=== PATIENT | male | born 1975 | race Caucasian/White ===

== ENCOUNTER 2020-04-03 09:35 | Outpatient (REF) | payer OTHER, SELFPAY ==
[2020-04-03 11:27] LABS: MANUAL DIFF FLAG NO
[2020-04-03 11:28] LABS: Basophils Percent Auto 0.6 % (0-2); Eosinophils Absolute Auto 0.1 X10*3/uL (0.0-0.4); Eosinophils Percent Auto 1.7 % (0-4); Hemoglobin 17.5 g/dl (14.0-18.0); Imm Gran Abs Auto 0.04 X10*3/uL (0.00-0.03); Imm Gran Pct Auto 0.6 % (0.0-0.4); Lymphocytes Absolute Auto 1.7 X10*3/uL (1.2-4.9); Lymphocytes Percent Auto 26.3 % (20-40); Mean Corpuscular HGB Conc 34.3 g/dl (31.0-36.0); Mean Corpuscular Hemoglobin 31.9 pg (27.0-33.0); Mean Corpuscular Volume 92.9 fL (80-98); Mean Platelet Volume 9.8 fL (9.4-12.4); Monocytes Absolute Auto 0.6 X10*3/uL (0.1-1.2); Monocytes Percent Auto 9.4 % (2-11); Neutrophils Absolute Auto 3.9 X10*3/uL (2.0-8.3); Neutrophils Percent Auto 61.4 % (45-73); Platelet Count 268 X10*3/uL (160-400); Red Blood Count 5.49 X10*6/uL (4.60-5.80); Red Cell Distribution Width 13.2 % (11.0-16.0); White Blood Count 6.3 X10*3/uL (4.8-10.8)
[2020-04-03 12:01] LABS: Alanine Aminotransferase 26 U/L (0-40); Albumin Level 4.6 g/dL (3.5-5.0); Alkaline Phosphatase 94 U/L (39-117); Anion Gap 13 (12-20); Aspartate Amino Transferase 22 U/L (5-37); Blood Urea Nitrogen 16 mg/dL (9-16); Calcium 9.2 mg/dL (8.4-10.2); Carbon Dioxide 26 mmol/L (22-29); Chloride 105 mmol/L (96-108); Cholesterol 174 mg/dL; Estimated Glomerular Filt Rate > 60; Glucose Fasting 116 mg/dL (60-99); HDL Cholesterol 43 mg/dL; LDL Cholesterol Calculated 111 mg/dl; Potassium 4.1 mmol/l (3.3-5.1); Sodium 140 mmol/L (135-145); Total Protein 6.9 g/dL (6.5-8.0); Triglycerides 104 mg/dL
== END 2020-04-03 09:36 | disposition home or self-care (01) ==
LOC: HO.MANLDS 09:35
PROVIDERS: PCP Internal Medicine; Visit Provider Physician Assistant
DX: Z00.00 Encounter for general adult medical examination without abnormal findings (principal); Z13.6 Encounter for screening for cardiovascular disorders
CPT/HCPCS: 36415; 80053; 80061; 85025

== ENCOUNTER 2021-03-31 07:40 | Outpatient (REF) | payer OTHER, SELFPAY ==
[2021-03-31 10:59] LABS: MANUAL DIFF FLAG NO
[2021-03-31 11:04] LABS: Basophils Percent Auto 0.4 % (0-2); Eosinophils Absolute Auto 0.2 X10*3/uL (0.0-0.4); Eosinophils Percent Auto 2.4 % (0-4); Hematocrit 49.7 % (42.0-52.0); Hemoglobin 17.2 g/dl (14.0-18.0); Imm Gran Abs Auto 0.07 X10*3/uL (0.00-0.03); Imm Gran Pct Auto 0.9 % (0.0-0.4); Lymphocytes Absolute Auto 1.7 X10*3/uL (1.2-4.9); Lymphocytes Percent Auto 22.2 % (20-40); Mean Corpuscular HGB Conc 34.6 g/dl (31.0-36.0); Mean Corpuscular Hemoglobin 32.2 pg (27.0-33.0); Mean Corpuscular Volume 93.1 fL (80.0-98.0); Mean Platelet Volume 10.1 fL (9.4-12.4); Monocytes Absolute Auto 0.8 X10*3/uL (0.1-1.2); Monocytes Percent Auto 10.4 % (2-11); Neutrophils Absolute Auto 4.7 x10*3/uL (2.0-8.3); Neutrophils Percent Auto 63.7 % (45-73); Platelet Count 284 X10*3/uL (160-400); Red Blood Count 5.34 X10*6/uL (4.60-5.80); Red Cell Distribution Width 13.1 % (11.0-16.0); White Blood Count 7.4 X10*3/uL (4.8-10.8)
[2021-03-31 11:41] LABS: Alanine Aminotransferase 35 U/L (0-40); Albumin Level 4.5 g/dL (3.5-5.0); Alkaline Phosphatase 97 U/L (39-117); Anion Gap 14 (12-20); Aspartate Amino Transferase 23 U/L (5-37); Bilirubin Total 1.1 mg/dL (0.0-1.0); Blood Urea Nitrogen 13 mg/dL (9-16); Calcium 9.8 mg/dL (8.4-10.2); Carbon Dioxide 22 mmol/L (22-29); Chloride 105 mmol/L (96-108); Cholesterol 177 mg/dL; Estimated Glomerular Filt Rate > 60; Glucose Fasting 137 mg/dL (60-99); HDL Cholesterol 44 mg/dL; LDL Cholesterol Calculated 115 mg/dl; Potassium 4.2 mmol/L (3.3-5.1); Sodium 137 mmol/L (135-145); Total Protein 6.9 g/dL (6.5-8.0); Triglycerides 94 mg/dL
== END 2021-03-31 07:41 | disposition home or self-care (01) ==
LOC: HO.MANLDS 07:40
PROVIDERS: PCP Physician Assistant; Visit Provider Physician Assistant
DX: Z00.00 Encounter for general adult medical examination without abnormal findings (principal)
CPT/HCPCS: 36415; 80053; 80061; 85025

== ENCOUNTER 2021-07-12 08:24 | Outpatient (REF) | payer OTHER, SELFPAY ==
[2021-07-12 11:41] LABS: Estimated Average Glucose 140 mg/dL; Hemoglobin A1c % 6.5 %
== END 2021-07-12 08:25 | disposition home or self-care (01) ==
LOC: HO.MANLDS 08:24
PROVIDERS: PCP Physician Assistant; Visit Provider Physician Assistant
DX: Z00.00 Encounter for general adult medical examination without abnormal findings (principal)
CPT/HCPCS: 36415; 83036

== ENCOUNTER 2022-06-27 09:39 | Outpatient (REF) | payer BC, SELFPAY ==
[2022-06-27 11:05] LABS: MANUAL DIFF FLAG NO
[2022-06-27 11:07] LABS: Basophils Percent Auto 0.5 % (0-2); Eosinophils Absolute Auto 0.2 X10*3/uL (0.0-0.4); Eosinophils Percent Auto 2.5 % (0-4); Hematocrit 50.5 % (42.0-52.0); Hemoglobin 17.1 g/dl (14.0-18.0); Imm Gran Abs Auto 0.04 X10*3/uL (0.00-0.03); Imm Gran Pct Auto 0.7 % (0.0-0.4); Lymphocytes Absolute Auto 1.4 X10*3/uL (1.2-4.9); Lymphocytes Percent Auto 23.8 % (20-40); Mean Corpuscular HGB Conc 33.9 g/dl (31.0-36.0); Mean Corpuscular Hemoglobin 31.3 pg (27.0-33.0); Mean Corpuscular Volume 92.3 fL (80.0-98.0); Monocytes Absolute Auto 0.6 X10*3/uL (0.1-1.2); Monocytes Percent Auto 9.5 % (2-11); Neutrophils Absolute Auto 3.8 x10*3/uL (2.0-8.3); Platelet Count 276 X10*3/uL (160-400); Red Blood Count 5.47 X10*6/uL (4.60-5.80); Red Cell Distribution Width 13.2 % (11.0-16.0)
[2022-06-27 11:22] LABS: Estimated Average Glucose 194 mg/dL; Hemoglobin A1c % 8.4 %
[2022-06-27 11:50] LABS: Alanine Aminotransferase 35 U/L (0-40); Albumin Level 4.4 g/dL (3.5-5.0); Alkaline Phosphatase 104 U/L (39-117); Anion Gap 11 (12-20); Aspartate Amino Transferase 24 U/L (5-37); Bilirubin Total 1.1 mg/dL (0.0-1.0); Blood Urea Nitrogen 16 mg/dL (9-16); Calcium 8.8 mg/dL (8.4-10.2); Carbon Dioxide 28 mmol/L (22-29); Chloride 106 mmol/L (96-108); Cholesterol 145 mg/dL; Estimated Glomerular Filt Rate > 60; Glucose Fasting 163 mg/dL (60-99); HDL Cholesterol 40 mg/dL; LDL Cholesterol Calculated 91 mg/dl; Potassium 4.4 mmol/L (3.3-5.1); Sodium 141 mmol/L (135-145); Total Protein 6.5 g/dL (6.5-8.0); Triglycerides 71 mg/dL
== END 2022-06-27 09:40 | disposition home or self-care (01) ==
LOC: HO.MANLDS 09:39
PROVIDERS: Visit Provider Physician Assistant
DX: Z00.00 Encounter for general adult medical examination without abnormal findings (principal); Z12.5 Encounter for screening for malignant neoplasm of prostate
CPT/HCPCS: 36415; 80053; 80061; 83036; 84153; 85025

== ENCOUNTER 2022-10-10 07:43 | Outpatient (REF) | payer BC, SELFPAY ==
[2022-10-10 12:16] LABS: Estimated Average Glucose 154 mg/dL
== END 2022-10-10 07:44 | disposition home or self-care (01) ==
LOC: HO.MANLDS 07:43
PROVIDERS: Visit Provider Physician Assistant
DX: E11.9 Type 2 diabetes mellitus without complications (principal)
CPT/HCPCS: 36415; 83036

== ENCOUNTER 2023-02-13 08:05 | Outpatient (REF) | payer BC, SELFPAY ==
[2023-02-13 13:31] LABS: Estimated Average Glucose 148 mg/dL; Hemoglobin A1c % 6.8 % (<6.0)
[2023-02-13 13:45] LABS: Cholesterol 164 mg/dL (<200); HDL Cholesterol 43 mg/dL (>40); LDL Cholesterol Calculated 100 mg/dL (<100); Triglycerides 109 mg/dL (<150)
== END 2023-02-13 08:06 | disposition home or self-care (01) ==
LOC: HO.MANLDS 08:05
PROVIDERS: Visit Provider Physician Assistant
DX: Z00.00 Encounter for general adult medical examination without abnormal findings (principal); E11.9 Type 2 diabetes mellitus without complications
CPT/HCPCS: 36415; 80061; 83036

== ENCOUNTER 2023-07-10 07:51 | Outpatient (REF) | payer BC, SELFPAY ==
[2023-07-10 13:37] LABS: MANUAL DIFF FLAG NO
[2023-07-10 13:43] LABS: Basophils Percent Auto 0.6 % (0-2); Eosinophils Absolute Auto 0.2 X10*3/uL (0.0-0.4); Eosinophils Percent Auto 2.4 % (0-4); Hematocrit 52.3 % (42.0-52.0); Imm Gran Abs Auto 0.04 X10*3/uL (0.00-0.03); Imm Gran Pct Auto 0.6 % (0.0-0.4); Lymphocytes Absolute Auto 1.7 X10*3/uL (1.2-4.9); Lymphocytes Percent Auto 27.1 % (20-40); Mean Corpuscular HGB Conc 34.4 g/dl (31.0-36.0); Mean Corpuscular Hemoglobin 32.3 pg (27.0-33.0); Mean Corpuscular Volume 93.9 fL (80.0-98.0); Mean Platelet Volume 10.6 fL (9.4-12.4); Monocytes Absolute Auto 0.6 X10*3/uL (0.1-1.2); Neutrophils Absolute Auto 3.8 x10*3/uL (2.0-8.3); Neutrophils Percent Auto 59.3 % (45-73); Platelet Count 272 X10*3/uL (160-400); Red Blood Count 5.57 X10*6/uL (4.60-5.80); Red Cell Distribution Width 13.1 % (11.0-16.0); White Blood Count 6.3 X10*3/uL (4.8-10.8)
[2023-07-10 14:03] LABS: Estimated Average Glucose 220 mg/dL; Hemoglobin A1c % 9.3 % (<6.0)
[2023-07-10 14:35] LABS: Alanine Aminotransferase 33 U/L (0-40); Albumin Level 4.4 g/dL (3.5-5.0); Alkaline Phosphatase 111 U/L (39-117); Anion Gap 13 (12-20); Aspartate Amino Transferase 23 U/L (5-37); Blood Urea Nitrogen 13 mg/dL (9-16); Calcium 9.6 mg/dL (8.4-10.2); Carbon Dioxide 26 mmol/L (22-29); Chloride 103 mmol/L (96-108); Cholesterol 157 mg/dL (<200); Estimated Glomerular Filt Rate > 60; Glucose Random 193 mg/dL (60-115); HDL Cholesterol 43 mg/dL (>40); LDL Cholesterol Calculated 98 mg/dL (<100); Potassium 4.1 mmol/L (3.3-5.1); Sodium 138 mmol/L (135-145); Triglycerides 80 mg/dL (<150)
== END 2023-07-10 07:52 | disposition home or self-care (01) ==
LOC: HO.MANLDS 07:51
PROVIDERS: Visit Provider Physician Assistant
DX: Z00.00 Encounter for general adult medical examination without abnormal findings (principal); Z12.5 Encounter for screening for malignant neoplasm of prostate; Z13.6 Encounter for screening for cardiovascular disorders
CPT/HCPCS: 36415; 80053; 80061; 83036; 84153; 85025

== ENCOUNTER 2023-11-06 12:05 | Outpatient (REF) | payer BC, SELFPAY ==
[2023-11-06 17:46] LABS: Estimated Average Glucose 203 mg/dL; Hemoglobin A1c % 8.7 % (<6.0)
== END 2023-11-06 12:06 | disposition home or self-care (01) ==
LOC: HO.MANLDS 12:05
PROVIDERS: Visit Provider Physician Assistant
DX: E11.9 Type 2 diabetes mellitus without complications (principal)
CPT/HCPCS: 36415; 83036

== ENCOUNTER 2024-07-23 09:16 | Outpatient (REF) | payer BC, SELFPAY ==
[2024-07-23 13:12] LABS: MANUAL DIFF FLAG NO
[2024-07-23 13:20] LABS: Appearance Urine Clear; Color Urine Dark Yellow; Glucose Urine UA >=1000 mg/dL (Negative); Leukocyte Esterase Urine Negative (Negative); Nitrite Urine Negative (Negative); PH 5.5 (5.0-9.0); Specific Gravity - Urine >= 1.030 (1.005-1.025); UMIC TRIGGER UA YES; Urine Blood Negative (Negative); Urine Ketones Trace mg/dL (Negative); Urine Protein Negative (Neg-Trace)
[2024-07-23 13:27] LABS: Bacteria Urine None Seen (None Seen); Hyaline Casts Urine 0-2 /LPF (0-2); RBC Urine 0-2 /HPF (0-2); Squamous Epithelial Cell Urine 0-2 /HPF (0-2); WBC Urine 0-5 /HPF (0-5)
[2024-07-23 13:28] LABS: Basophils Percent Auto 0.6 % (0-2); Eosinophils Absolute Auto 0.2 X10*3/uL (0.0-0.4); Eosinophils Percent Auto 2.6 % (0-4); Hematocrit 51.4 % (42.0-52.0); Hemoglobin 17.8 g/dl (14.0-18.0); Imm Gran Abs Auto 0.06 X10*3/uL (0.00-0.03); Imm Gran Pct Auto 0.9 % (0.0-0.4); Lymphocytes Absolute Auto 1.6 X10*3/uL (1.2-4.9); Lymphocytes Percent Auto 24.7 % (20-40); Mean Corpuscular HGB Conc 34.6 g/dl (31.0-36.0); Mean Corpuscular Hemoglobin 31.4 pg (27.0-33.0); Mean Corpuscular Volume 90.7 fL (80.0-98.0); Mean Platelet Volume 10.4 fL (9.4-12.4); Monocytes Absolute Auto 0.6 X10*3/uL (0.1-1.2); Monocytes Percent Auto 9.7 % (2-11); Neutrophils Percent Auto 61.5 % (45-73); Platelet Count 265 X10*3/uL (160-400); Red Blood Count 5.67 X10*6/uL (4.60-5.80); White Blood Count 6.5 X10*3/uL (4.8-10.8)
[2024-07-23 13:57] LABS: Estimated Average Glucose 229 mg/dL; Hemoglobin A1C 380.8167 umol/L; Hemoglobin A1c % 9.6 % (<6.0); Total Hemoglobin (HGBA1C) 4705.0767 umol/L
[2024-07-23 14:02] LABS: Alanine Aminotransferase 37 U/L (0-40); Albumin Level 4.4 g/dL (3.5-5.0); Alkaline Phosphatase 107 U/L (39-117); Anion Gap 14 (12-20); Aspartate Amino Transferase 34 U/L (5-37); Blood Urea Nitrogen 17 mg/dL (9-16); Calcium 9.2 mg/dL (8.4-10.2); Carbon Dioxide 20 mmol/L (22-29); Chloride 107 mmol/L (96-108); Cholesterol 157 mg/dL (<200); Estimated Glomerular Filt Rate > 60; Glucose Random 231 mg/dL (60-115); HDL Cholesterol 39 mg/dL (>40); LDL Cholesterol Calculated 96 mg/dL (<100); Potassium 3.9 mmol/L (3.3-5.1); Sodium 137 mmol/L (135-145); Total Protein 6.8 g/dL (6.5-8.0); Triglycerides 112 mg/dL (<150); Uric Acid 4.3 mg/dL (3.4-7.0)
== END 2024-07-23 09:17 | disposition home or self-care (01) ==
LOC: HO.MANLDS 09:16
PROVIDERS: Visit Provider Physician Assistant
DX: N20.0 Calculus of kidney (principal); E11.9 Type 2 diabetes mellitus without complications
CPT/HCPCS: 36415; 80053; 80061; 81001; 83036; 83970; 84550; 85025

== ENCOUNTER 2025-02-10 07:50 | Outpatient (REF) | payer BC, SELFPAY ==
--- OUTSIDE RECORDS SUMMARY | 2023-12-20 08:29 | XMS_ITS | Encounter Summary ---
Author Organization [facility] Address [address] [place] [phone] Phone Care Team Providers Care City Marshal Name Role Phone Jimbo Vanessa DO Primary Care Provider [phone] Jimbo Vanessa DO Unavailable Encounter Details Date Type Department Care Team (Late st Contact Info) Description 12/20/2023 8:29 AM EDT Hospital Encounter [facility] [address] [place] [id number] Cora Calvo CNP [address] [place] [phone] [email or web address] Social History Tobacco Use Types Packs/Day Years Used Date Smoking Tobacco: Never Smokeless Tobacco: Never Education Answer Date Recorded Are you interested in more education? Not on leslie e 08/12/2022 Are you concerned about learning? Not on file 08/12/2022 No 08/12/2022 No 08/12/2022 Digital Access Answer Date Recorded No 09/12/2022 No 09/12/2022 Reliable internet access at home? Not on file 09/12/2022 Device with a working camera? Not on file Intimate Partner Violence Answer Date R ecorded Are you denied basic needs s uch as food, clothing, or medical care? No 12/20/2023 In the past 12 months have y ou been in a relationship with a person who hurts, threatens, or tries to control you? No 12/20/2023 Are you denied basic needs s uch as food, clothing, or medical care? No 12/20/2023 In the past 12 months have y ou been in a relationship with a person who hurts, threatens, or tries to control you? No 12/20/2023 Sex and Gender Information Value Date Recorded Sex Assigned at Male 12/20/2023 10:20 AM EDT Legal Sex Male 9:29 PM EDT Gender Identity Male 12/20/2023 10:20 AM EDT Sexual Orientation Straight 12/20/2023 10 :20 AM EDT documented as of this encounter Functional Status * Calculated C-SSRS Risk Score (Lifetime/Recent) Answer Date of Assessment Author No Risk Indicated 12/20/2023 10:17 AM EDT Mary Abernathy, ADDIE * [place] Suicide Severity Rating Scale (Screener/Recent Self-Report) Question Answer Date of Assessment Author 1. Wish to be (Past 1 Month) No 024 10:17 AM EDT Mary Abernathy, ADDIE 2. Non-Specific Active Suici efren Thoughts (Past 1 Month) No 12/20/2023 10:17 AM EDT Eleanor Abernathy RN 6. Suicidal Behavior (Lifetime) No 10:17 AM EDT Mary Abernathy, ADDIE documented as of this encounter Plan of Treatment Not on file documented as of this encounter Procedures Procedure Name Priority Date/Time Associated Diagnosis Comments XR ABDOMEN 3 OR MORE VIEWS Urgent/patient waiting 12/20/2023 8:41 AM EDT Acute left flank pain documented in this encounter Results * XR ABDOMEN 3 OR MORE VIEWS (12/20/2023 8:41 AM EDT) Anatomical Region Laterality Modality Abdomen Computed Radiogr aphy 12/20/2023 8:59 AM EDT Impressions 12/20/2023 9:00 AM EDT 1. Nonobstructive bowel gas pattern. Narrative 12/20/2023 9:00 AM EDT XR ABDOMEN 3 OR MORE VIEWS Referring clinician's provided indication for this examination in Epic: Pain; LLQ pain, radiate to back , equivocal L CVA tenderness COMPARISON: None FINDINGS: Tubes/Lines: None Bowel: Nonobstructive bowel gas pattern. No obvious pneumoperitoneum. Bones/Soft Tissues: Mild degenerative changes in the hips. Procedure Note Maye Camejo MD - 12/20/2023 XR ABDOMEN 3 OR MORE VIEWS Referring clinician's provided indication for this examination in Epic:Pain; LLQ pain, radiate to back , equivocal L CVA tenderness COMPARISON: None FINDINGS: Tubes/Lines: None Bowel: Nonobstructive bowel gas pattern. No obvious pneumoperitoneum. Bones/Soft Tissues: Mild degenerative changes in the hips. IMPRESSION: 1. Nonobstructive bowel gas pattern. us Cora Calvo MANAGER [employer] IMG XR ABDOMEN Final Resul t documented in this encounter Visit Diagnoses Not on filedocumented in this encounter Care Teams City Marshal Relationship Specialty Start Date End Date Jimbo Vanessa DO PCP - General Internal Medicine 04/07/20 Jimbo Vanessa DO [address] [place] [phone] Insurance Assigned Provider 07/22/23 documented as of this encounter Additional Source Comments The information contained in this document represents components of the legal health record. It is not the complete legal health record.[facility]
--- OUTSIDE RECORDS SUMMARY | 2025-02-10 07:55 | XMS_ITS | Data Portability ---
Author Organization [facility], Telehealth Patient Home Address [address] [place] [address] Assessment No assessment recorded. Plan of Treatment Reminders Order Date Submit Date Provider Last Modified By Organization Details Last Modified Time Details Appointments ANNUAL EXAM 2025 09:00A ROYAL MILAN Not available Not available Not available Lab hemoglobi n A1c, QN, blood 2023 024 [facility], [address] [place] [address], [id number], 11/07/2023 11:53:11 hemoglobi n A1c, QN, blood 2023 024 [facility], [address] [place] [address], [address], 07/29/2024 09:12:41 HbA1c (hemoglob in A1c), blood 2021 022 [facility], [address] [place] [address], [id number], 07/13/2021 12:00:17 lipid panel, blood 2019 020 On license of [facility], [address] [place] [address], [place], [address], 04/06/2020 11:43:25 CBC w/ auto diff 2019 020 On license of [facility], [address] [facility], [place], [address], 04/06/2020 11:43:25 CMP, serum or plasma 2019 [facility], [address] [facility], [address], [place], [address], 04/06/2020 11:43:25 Referral sleep medicine referral 2019 [facility], [address] [place] [address], [address], 04/06/2020 08:36:51 Procedures None recorded. Surgeries None recorded. Imaging US, carotid artery 2019 ROSIO Not available 04/09/2020 12:35:12 Medication Orders metformin ER 500 mg tablet,ex tended release 24 hr 2024 025 [id number], [address] [place] [address], [id number], 07/29/2024 09:19:37 metformin ER 500 mg tablet,ex tended release 24 hr 2023 024 [facility] Not available 07/17/2023 09:08:29 Patient TargetsNo targets recorded. Patient InstructionsNo instructions recorded. Reason for Referral Sleep Medicine Referral for Fatigue would like at home sleep study, increased neck diameter, concerned about sleep apnea Referring Physician: Goldie Cortez, Internal Medicine, Encounter Date: 04/03/2020 Results Created Date Observation Date Name Description Value Unit Range Abnormal Flag Note LastModifiedBy Organization Detail LastModifiedTime 04/09/20 20 04/09/2020 US, carot id arter y No observ ation record ed. [facility] [address] [place], [address], 04/13/2020 10:52:31 04/23/19 21 04/09/2020 home sleep study No observ ation record ed. [email or web address] [address], [address], 04/24/2020 10:43:58 02/05/20 24 02/05/2024 US, renal No observ ation record ed. [facility] [address] [facility] [address], [place], [address], 07/29/2024 09:12:40 02/05/20 25 02/03/2025 XR, foot, 3 or more view No observ ation record ed. [facility] [address], [place], [address], 02/04/2025 12:13:11 Result Notes None recorded. Problems Name Problem SNOMED Code Status Onset Date Resolution Date Notes Provider Name and Address Organization Details Recorded Time Essential hypertens ion 52281378 [facility] 10:41:57 Bilateral hearing loss 66511610 Active 2019 ROYAL PAN [address] [place] [address], [address], [facility] 0 09:12:56 Reactive airway disease 18411881736 6 Active 2019 very mild asthma ROYAL PAN [address] [place] [address], [address], [facility] 0 09:13:32 Bilateral hearing loss 05757505 Active 2022 ROYAL PAN [address] [place] [address], [address], [facility] 3 09:16:51 Type 2 diabetes mellitus 59443389 Active 2023 ROYAL PAN [address] [place] [address], [address], [facility] 4 09:07:55 COVID-19 293864209 Active 2023 Jimbo Vanessa DO [address] [place], [address], [facility] 4 09:59:33 Kidney stone 17986059 Active 2023 GOLDIE JONATHANROYAL SPENCER [address] [place], [address], [facility] 4 09:42:38 Pain of toe of left foot 70734987847 9108 Active 2024 GOLDIE JONATHANROYAL SPECNER [address] [place], [address], [facility] 5 14:45:31 Closed fracture of phalanx of foot 27350759 Active 2024 ROYAL PAN [address] [place], [address], [facility] 5 12:14:00 Notes:Some problems listed i n Documents: #[id number], #[id number], #[id number] could not be added to this patient's chart. Please review these documents and add these problems to the patient's chart manually as needed. Problem Notes None recorded. Procedures Surgical History Date Name Laterality Status Provider Name and Address Organization Details Recorded Time tonsillectomy completed July SACHIN LeonardJEAN CLAUDE [address] [place], [address], [facility] 04/01/2019 09:36:10 Imaging Results None recorded. Procedure Notes None recorded. Medical Equipment None Reported. Allergies Allergen ID Allergen Name Allergen Category Reaction Reaction Severity Criticality Documentation Date Start Date Code Code System Note Provider Name and Address Organization Details Recorded Time 2260 Product containin g penicilli n (product) medicatio n Not available Not available Not available 12/25/2017 66944 8001 SNOMED Lyn roque [facility] 8 10:41:03 2262 Bactrim medicatio n facial swelling Not available Not available 12/25/2017 50732 9 RxNorm hives Lyn roque [facility] 8 10:41:24 Medications Name Sig Start Date Stop Date Status Note LastModified by Organization Details LastModified Time glipizide ER 5 mg tablet, extended release 24 hr TAKE 1 TABLET BY MOUTH EVERY DAY DIRECTED needs appt for further refills call office 2024 active Not Available Not Available Not Avai lable ketorolac 10 mg tablet 07/29 completed Not Available Not Available Not Available oxycodone-a cetaminophe n 5 mg-325 mg tablet TAKE 1 TABLET BY MOUTH EVERY 4 HOURS NEEDED FOR PAIN 07/29 completed Not Available Not Available Not Available tamsulosin 0.4 mg capsule 07/29 completed Not Available Not Available Not Available metformin ER 500 mg tablet,exte nded release 24 hr TAKE 1 TABLET BY MOUTH TWICE DAILY needs appt for further refills,. call office 2024 active Not Available Not Available Not Avai lable Adacel (Tdap Adolesn/Esequiel lt)(PF)2Lf- (2.5-5-3-5m cg)-5 Lf/0.5 mL IM susp inject 0.5 millilite r intramusc ularly 06/22 completed Not Available Not Available Not Available GaviLyte-G 236 gram-22.74 gram-6.74 gram-5.86 gram oral solution TAKE 8 OZ PO UTD 04/03 completed Not Available Not Available Not Available Fluzone Quad 8824-9333 (PF) 60 mcg (15 mcg x 4)/0.5 mL IM syringe ADM 0.5ML IM UTD 06/22 completed Not Available Not Available Not Available Paxlovid 300 mg (150 mg x 2)-100 mg tablets in a dose pack TK 2 NIRMATREL VIR TS AND 1 RITONAVIR T TOGETHER PO TWICE DAILY 07/29 completed Not Available Not Available Not Available Vitals Date Recorded Body height Body mass index (BMI) Body weight Oxygen saturation Oxygen saturation in Arterial blood by Pulse oximetry Heart rate Systolic And Diastolic Provider Name and Address Organization Details Last Updated DateTime 2 170.18 cm 36.7 kg/m2 249416. 97 g 100 % 100 % 98 /min 148/90 mm[Hg] Urszula Grier [place] - [facility] 2 15:42:08 Date Recorded Body height Body mass index (BMI) Body weight Heart rate Oxygen saturation Oxygen saturation in Arterial blood by Pulse oximetry Systolic And Diastolic Provider Name and Address Organization Details Last Updated DateTime 3 170.18 cm 36.2 kg/m2 094400. 27 g 83 /min 100 % 100 % 140/90 mm[Hg] Griselda Paz [facility] 3 09:03:59 Date Recorded Body height Body mass index (BMI) Body weight Heart rate Oxygen saturation Oxygen saturation in Arterial blood by Pulse oximetry Systolic And Diastolic Provider Name and Address Organization Details Last Updated DateTime 4 170.18 cm 35.2 kg/m2 282274. 28 g 93 /min 100 % 100 % 129/80 mm[Hg] Janette Agmond [facility] 4 09:03:52 Date Recorded Body height Body mass index (BMI) Body weight Heart rate Oxygen saturation Oxygen saturation in Arterial blood by Pulse oximetry Systolic And Diastolic Provider Name and Address Organization Details Last Updated DateTime 5 170.18 cm 34.3 kg/m2 40884.6 5 g 100 /min 98 % 98 % 124/82 mm[Hg] Tanvi Tony [facility] 5 09:02:58 Date Recorded Body height Body mass index (BMI) Body weight Body temperature Heart rate Oxygen saturation Oxygen saturation in Arterial blood by Pulse oximetry Systolic And Diastolic Provider Name and Address Organization Details Last Updated DateTime 0 170.18 cm 33.7 kg/m2 53487.0 8 g 96.2 [degF] 84 /min 99 % 99 % 126/82 mm[Hg] Lyn Ruffin [facility] 0 09:04:56 Social History Question Answer Notes LastModified by Songza Details LastModified Time Tobacco Smoking Status Former Smoker Lyn roque [facility] 12/25/2017 10:42:11 What Was The Date Of Your Most Recent Tobacco Screening? 07/29/2024 [email or web address] Information not available 07/29/2024 How Many Years Have You Smoked Tobacco? 5 [email or web address] Information not available 12/25/2017 Sex: Unknown Functional Status Question Answer Note LastModified by Songza Details LastModified Time Do you or have you ever used any other forms of tobacco or nicotine? No [email or web address] Information not available 07/17/2023 Do you or have you ever used smokeless tobacco? Never used smokeless tobacco [email or web address] Information not available 07/04/2022 Do you or have you ever used e-cigarettes or vape? Never used electronic cigarettes [email or web address] Information not available 07/04/2022 Mental Status None recorded. Family History Relationship Description Onset Age of this Age Resolved Age Notes LastModified by Organization Details LastModified Time Maternal Uncle Malignant neoplasm of colon 70 [email or web address] Not available 2024 08:55:58 Mother Heart disease [email or web address] Not available 04/01 09:43:26 Mother Type 2 diabetes mellitus [email or web address] Not available 2024 08:55:58 Father Heart valve disorder [email or web address] Not available 2024 08:55:58 Paternal Aunt Type 2 diabetes mellitus [email or web address] Not available 2024 08:55:58 Paternal Grandmother Type 2 diabetes mellitus [email or web address] Not available 2024 08:55:58 Sister Procedure on heart valve 52 aortic valve replac ed; aortic stenos is [email or web address] Not available 07/29/2024 08:55:58 Medical History Condition Response Coronary Artery Disease N Gout N Other N Kidney Stones N Blood Diseases N Blood Transfusion N Breast Cancer N Lung Disease N Depression N COPD N Defects or Inherited Disease N Anxiety Disorder N Muscle, Joint, or Bone Problems N Obesity N Vision or Eye Problems N Arthritis N Infertility N Polyps N Mental Disorder N Cancer N Stroke N Varicosities N Endometriosis N Bladder or Kidney Problems N High Cholesterol N Liver Disease N Fibromyalgia N Headaches N Kidney Disease N Allergies/Hayfever N Heart Problems N Hospitalizations N Thyroid Problems N GI Problems N Eating Disorder N Skin Problems N Anemia N MRSA exposure N Constipation N Mental Illness N Diabetes N Ovarian Cancer N Seizures/Epilepsy N Tuberculosis N Congestive Heart Failure (CHF) N Eczema N Abuse/Domestic Violence N Diverticulitis N Asthma N Reflux/GERD N Hepatitis N Heart Disease N Pulmonary Embolism N Hypertension N Chicken Pox N Autism Spectrum Disorder (ASD) N Osteoporosis N Immunizations Vaccine Type Date Status Note Provider Nam e and Address Organization Details Recorded Time influenza, unspecified formulation 03/31/2022 [facility] 07/04/2022 09:01:45 SARS-COV-2 (COVID-19) vaccine, UNSPECIFIED 08/02/2020 [facility] 07/04/2022 09:02:15 SARS-COV-2 (COVID-19) vaccine, UNSPECIFIED 08/25/2020 jossy Paz [facility] 07/04/2022 09:02:21 SARS-COV-2 (COVID-19) vaccine, UNSPECIFIED 03/25/2021 jossy Paz [facility] 07/04/2022 09:02:30 SARS-COV-2 (COVID-19) vaccine, UNSPECIFIED 01/19/2022 jossy Paz [facility] 07/04/2022 09:02:38 Past Encounters Encounter ID Performer Location Encounter Start Date Encounter Closed Date Diagnosis/Indication Diagnosis SNOMED-CT Code Diagnosis ICD10 Code Diagnosis IMO Codes Diagnosis Note [id number] Jimbo Vanessa [facility] [address] [place] [address] 12/25/2017 10:35:00 12/25/2017 11:15:40 Dyspnea 564486991 R06.00 normal chest exam no clear underlying cause i supppose anxiety is possible if sx worsen or new sx develop please f/u right away Atypical chest pain 1025 00827 R07.89 again no clear cause given normal ekg, bp and generally very healthy lifestyle. if sx worsen or become more persistent [place] [id number] Jimbo Vanessa [facility] [address] [address] 03/30/2018 08:57:35 03/30/2018 10:43:24 Adult health examination 335694040 Z00.00 Active or passive immunization 374344230 Z23 declines flu shot Body mass index 30+ - obesity 918119264 Z68.34 healthy diet and exercise continue walking daily [id number] Jimbo Vanessa [facility] [address] [address] 04/01/2019 09:13:14 04/01/2019 09:50:24 Adult health examination 621727111 Z00.00 Active or passive immunization 314554241 Z23 declines flu shot Body mass index 30+ - obesity 739746927 Z68.34 healthy diet and exercise continue walking daily Essential hypertension 14502971 I10 mildly elevated work on diet and weight loss Impacted cerumen 0798621 6 H61.22 debrox otc x 3 days, then once weekly or as needed after that [id number] Jimbo Vanessa [facility] [address] [facility] [address] 04/03/2020 08:54:21 04/03/2020 11:30:53 Adult health examination 099610995 Z00.00 BP normal today Screening for cardiovascular system disease 793774343 Z13.6 will check blood work Fatigue 29567816 R53.83 will send in for home sleep study Carotid bruit 821655045 R09.89 [place], [place] [id number] Jimbo Vanessa [facility] [address] [facility] [address] 06/22/2021 15:24:46 06/23/2021 10:22:49 Active or passive immunization 287827322 Z23 advised Adult heal th examination 807301187 Z00.00 will fu with A1c check due to IFG [id number] Jimbo Vanessa DO [facility] [address] [facility] [address] 07/04/2022 08:53:58 07/04/2022 10:52:45 Active or passive immunization 867547242 Z23 advised Adult heal th examination 376081924 Z00.00 will fu with A1c check due to IFG Bilateral hearing loss 28619592 H90.3 no worse [id number] Jimbo Vanessa DO [facility] [address] [facility] [address] 07/17/2023 08:57:50 07/17/2023 10:46:55 Type 2 diabetes mellitus 42873715 E11.9 will set up with metformin after pt consent and monitor a1c every 3 mos Adult heal th examination 235487243 Z00.00 needs f/u with sugar check every 3 mos [id number] Jimbo Vanessa [facility] [address] [facility] [address],[place] [address] 07/29/2024 08:54:00 07/29/2024 12:03:07 Active or passive immunization 327437782 Z23 advised Adult heal th examination 848633443 Z00.00 needs f/u Type 2 payton betes mellitus 94272614 E11.9 will set up with metformin after pt consent and monitor a1c every 3 mos Health Concerns Section Related Observation LastModified by Organization Detai ls LastModified Time None Recorded Concern Status LastModified by Organization Details LastModified Time None Recorded Advance Directives Directive None Recorded Payers Insurance Date Sequence Insurance Name Policy Number Policy Price Covered Member ID Price Member ID Guarantor Name 07/23/2024 1 [facility] [id number] Nigel Herrera [id number] Nigel Sharon 07/23/2024 1 [facility] [id number] Nigel Herrera [id number] Nigeldakotah Herrera 07/26/2024 1 [facility] (PPO[facility] [id number] Nigel Mehul Herrera [id number] Nigel Herrera Notes Date Note Type Note Provider Name a nd Address Organization Details Recorded Time 0 text/html Annual WellnessReported by PatientSocial/Behavio ral HistoryFor diet and nutrition, patient reportsdiscussed vitamin and supplement use,discussed portion control,discussed maintaining calcium balance, anddiscussed diet improvement(needs more fruit and vegetables). For fracture risk, patient reportsno history of fractures,no recent explained fracture,no sudden unexplained fractures, andno previous musculoskeletal injuries. For physical activity, patient reportsexercises on a regular basis,discussed weightbearing activities, anddiscussed exercise habits(the patient walks everyday). For additional lifestyle factors, patient reportsno tobacco useanddrinks alcohol (mild-moderate).Menta l Status:For depression risk, patient reportsnever feels sad, empty, or tearful,no loss of interest in activities,no significant changes in weight,no sleep disturbances or insomnia,no agitation,no loss of energy,no feelings of worthlessness or guilt,no thoughts of suicide,no history of depression, andno history of mood disorders.Functional AbilityFor hearing, patient reportsloss of hearing: in both ears(uses hearing aids). For vision, patient reportsno vision problems(last eye exam was few years ago, needs to go back). ROYAL PAN [address] [place], [address], [facility] 04/03/2020 09:26:22 2 text/html Annual WellnessReported by PatientSocial/Behavio ral HistoryFor diet and nutrition, patient reportsdiet is high in salt,diet is high in fat, low in fiber,high caloric intake, andhigh carbohydrate mealsbut reportsdiscussed vitamin and supplement use,discussed portion control,discussed maintaining calcium balance, anddiscussed diet improvement(the patient is up 20 pounds). For physical activity, patient reportsdoes not exercise on a regular basisbut reportsdiscussed weightbearing activities. For fracture risk, patient reportsno history of fractures,no recent explained fracture,no sudden unexplained fractures, andno previous musculoskeletal injuries. For additional lifestyle factors, patient reportsno tobacco useanddrinks alcohol (mild-moderate).Funct ional AbilityFor hearing, patient reportsno loss of hearingandwears hearing aids. For vision, patient reportsno vision problems(has been to the eye doctor last year). BP 119/60 recheck ROYAL PAN [address] [place], [address], [facility] 06/22/2021 16:07:28 3 text/html Annual WellnessReported by PatientSocial/Behavio ral HistoryFor diet and nutrition, patient reportshigh caloric intakeandhigh carbohydrate mealsbut reportsdiscussed vitamin and supplement use,discussed portion control,discussed maintaining calcium balance, anddiscussed diet improvement. For physical activity, patient reportsdecreased physical activitybut reportsexercises on a regular basisandgood physical condition. For fracture risk, patient reportsno history of fractures,no recent explained fracture,no sudden unexplained fractures, andno previous musculoskeletal injuries. For additional lifestyle factors, patient reportsno tobacco useanddrinks alcohol (mild-moderate).Menta l Status:For depression risk, patient reportsnever feels sad, empty, or tearful,no loss of interest in activities,no significant changes in weight,no sleep disturbances or insomnia,no agitation,no loss of energy,no feelings of worthlessness or guilt,no thoughts of suicide,no history of depression, andno history of mood disorders.Functional AbilityFor hearing, patient reportsno loss of hearing. For vision, patient reportsno vision problems(last eye appt was last summer). the patient was diagnosed with Y5ZGwye patient was 8.4% with last checkagreed to trying lifestyle changes first > patient didn't want to start medication, wanted to try changing his diettalked about the diagnosis ROYAL PAN [address] [place], [address], [facility] 07/04/2022 09:33:32 4 text/html Annual WellnessReported by PatientSocial/Behavio ral HistoryFor diet and nutrition, patient reportshigh caloric intakeandhigh carbohydrate mealsbut reportsdiscussed vitamin and supplement use,discussed portion control,discussed maintaining calcium balance, anddiscussed diet improvement. For physical activity, patient reportsdecreased physical activitybut reportsexercises on a regular basisandgood physical condition. For fracture risk, patient reportsno history of fractures,no recent explained fracture,no sudden unexplained fractures, andno previous musculoskeletal injuries. For additional lifestyle factors, patient reportsno tobacco useanddrinks alcohol (mild-moderate).Menta l Status:For depression risk, patient reportsnever feels sad, empty, or tearful,no loss of interest in activities,no significant changes in weight,no sleep disturbances or insomnia,no agitation,no loss of energy,no feelings of worthlessness or guilt,no thoughts of suicide,no history of depression, andno history of mood disorders.Functional AbilityFor hearing, patient reportsno loss of hearing. For vision, patient reportsno vision problems(couple years ago, needs fu due to diabetes).last dentist appt was in March the patient was diagnosed with K4ZRdin patient was 9.3% with last checkpatient is refusing treatment the patient reports he has been having issues with thirst and urination, not surprising ROYAL PAN [address] [place], [address], [facility] 07/17/2023 09:17:21 5 text/html Annual WellnessReported by PatientSocial/Behavio ral HistoryFor diet and nutrition, patient reportshealthy diet,discussed vitamin and supplement use,discussed portion control,discussed maintaining calcium balance, anddiscussed diet improvement. For fracture risk, patient reportsno history of fractures,no recent explained fracture,no sudden unexplained fractures, andno previous musculoskeletal injuries. For physical activity, patient reportsexercises on a regular basis,recent increase in physical activity, andgood physical condition. For additional lifestyle factors, patient reportsno tobacco use,no alcohol intake, andstopped drinking alcohol.Mental Status:For depression risk, patient reportsnever feels sad, empty, or tearful,no loss of interest in activities,no significant changes in weight,no sleep disturbances or insomnia,no agitation,no loss of energy,no feelings of worthlessness or guilt,no thoughts of suicide,no history of depression, andno history of mood disorders.Functional AbilityFor hearing, patient reportsno loss of hearing. For vision, patient reportsno vision problems.ROS as noted in the HPI the patient may be developing glaucoma, has f/u with [facility] the patient does not have diabetic retinopathy on last exam BP is excellentHR is w/n/l, higher than normal but he walked to the office ROYAL PAN [address] [facility], [place], [address], [facility] 07/29/2024 09:19:46
--- OUTSIDE RECORDS SUMMARY | 2025-02-10 07:55 | XMS_ITS | Encounter Summary ---
Author Organization [facility] Address [address] [place] [address] Phone Care Team Providers Care Certified Scrum Master Name Role Phone Robyn Connor PA-C Primary Care Provider [phone] Jimbo Vanessa DO Primary Care Provider Jimbo Vanessa DO Unavailable Reason for Referral * Outpatient Procedure - Closed Specialty Diagnoses / Procedures Referred By Yvonne garcia Referred To Contact Diagnoses Other chest pain Procedures Stress Test Exercise Robyn Connor PA-C Phone: tel: fax: [email or web address] Referral ID Status Reason Start Date Expiration Date Visits Re quested Visits Authorized [id number] Closed 12/27/2017 12/27/2018 1 1 Encounter Details Date Type Department Care Team (Late st Contact Info) Description 12/27/2017 Ancillary Orders Virtual Department [address] [place] [address] Robyn Connor PA-C [address] [place] [address] Other chest pain Social History Tobacco Use Types Packs/Day Years Used Date Smoking Tobacco: Never Assessed Sex and Gender Information Value Date Recorded Sex Assigned at Male 12/20/2023 10:20 AM EDT Legal Sex Male 9:29 PM EDT Gender Identity Male 12/20/2023 10:20 AM EDT Sexual Orientation Straight 12/20/2023 10 :20 AM EDT documented as of this encounter Plan of Treatment Not on file documented as of this encounter Results * Stress Test Exercise (01/01/2018 9:35 AM EDT) Max BP Systolic 168 mmHg [facility] Max BP Diastolic 64 mmHg [facility] Max HR 171 BPM [facility] Resting HR 79 BPM [facility] Resting BP Systolic 124 mmHg [facility] Resting BP Diastolic 80 mmHg [facility] Peak METS 17.2 METS [facility] Peak HR 171 BPM [facility] Anatomical Region Laterality Modality Heart Other 01/01/2018 8:47 AM EDT 01/01/2018 9:35 AM EDT Narrative 01/01/2018 10:54 AM EDT Response to Stress The patient exercised for minutes seconds, achieving 17.2 METS at peak exercise. Baseline blood pressure was 124/80 mmHg, and baseline heart rate was 79 bpm. The patient achieved a peak heart rate of 171 bpm, which is% of their maximum predicted heart rate. Pt exercised for 15 minutes on a GABRIEL protocol achieving 17.2 METS. Test terminated due to fatigue. Max heart rate 171 (965 MPHR). 1. Baseline EKG - normal sinus rhythm. No ischemic EKG changes with exercise. 2. No chest pain. 3. Normal BP response to exercise. Excellent functional capacity for age. 4. Few PVCs. Conclusion - normal stress test. Alida Herrmann BETA TESTER with Dr Davis . July Geeta DUNBAR CV STRESS ORDERABLES Final R esult documented in this encounter Visit Diagnoses Diagnosis Other chest pain Other chest pain documented in this encounter Care Teams Certified Scrum Master Relationship Specialty Start Date End Date Robyn Connor PA-C [address] [place] [address] PCP - General Unknown Provider Specialty 12/27/17 04/06/20 Jimbo Vanessa DO [address] [place] [address] [email or web address] PCP - General Internal Medicine 04/07/20 Jimbo Vanessa DO [address] [place] [address] Insurance Assigned Provider 07/22/23 documented as of this encounter Additional Source Comments The information contained in this document represents components of the legal health record. It is not the complete legal health record.[facility]
--- OUTSIDE RECORDS SUMMARY | 2025-02-10 07:55 | XMS_ITS | Clinical Summary ---
Author Organization [facility] Address [address] [place] [address] Phone Care Team Providers Care Chief Psychologist Name Role Phone Jimbo Vanessa DO Primary Care Provider Jimbo Vanessa DO Unavailable Allergies Active Allergy Reactions Criticality Noted Date Comments Azithromycin 12/20/2023 Penicillins 12/20/2023 Sulfamethoxazole-Trimethopri m 12/20/2023 Other Reaction(s): Facial Swelling Medications metFORMIN (GLUCOPHAGE) 500 MG tablet Take 500 mg by mouth 2 (two) times a day with meals. Active tamsulosin (FLOMAX) 0.4 mg Cap Take 1 capsule (0.4 mg total) by mouth daily for 7 days. 7 capsule 12/20/2023 Active Active Problems Problem Noted Date Diagnosed Date Type 2 diabetes mellitus 07/17/2023 Reactive airway disease 04/03/2020 Bilateral hearing loss 04/03/2020 Essential hypertension 12/25/2017 Encounters Date Type Department Care Team Description 02/03/2025 5:20 PM EDT - 02/03/2025 11:59 PM EDT Hospital Encounter [facility], Emergency - Main Hospital [address] [place] [address] Sita Cortez PA Discharge Disposition: Home or Self Care 02/03/2025 Transcribe Orders Virtual Department [address] [place] [address] Sita Cortez PA Pain of toe of left foot (Primary Dx) from Last 3 Months Immunizations No known immunizations Social History Tobacco Use Types Packs/Day Years [...] Orientation Straight 12/20/2023 10 :20 AM EDT Last Filed Vital Signs Vital Sign Reading Time Taken Comments Blood Pressure 141/87 12/20/2023 1:51 PM EDT Pulse 79 12/20/2023 1:51 PM EDT Temperature 36.4 C (97.6 F) 12/20/2023 1:51 PM EDT Respiratory Rate 18 12/20/2023 1:51 PM EDT Oxygen Saturation 100% 12/20/2023 1:51 PM EDT Inhaled Oxygen Concentration - - Weight 101.2 kg (223 lb) 12/20/2023 10:11 AM EDT Height 170.2 cm (5' 7 ) 12/20/2023 10:11 AM EDT Body Mass Index 34.93 12/20/2023 10:11 AM EDT Plan of Treatment Health Maintenance Due Date Last Done Comments Adult Td,Tdap Booster 1974 DEPRESSION SCREENING 1986 HEPATITIS C SCREENING 1992 HIV ONE-TIME SCREENING (18-65 YEARS) 1992 PNEUMOCOCCAL VACCINES (50+ years) (1 of 2 - PCV) 1993 COLOGUARD 2019 COLONOSCOPY 2019 COLORECTAL CANCER SCREENING 2019 FIT TEST 2019 FOBT 2019 SIGMOIDOSCOPY 2019 VIRTUAL COLONOSCOPY 2019 DIABETIC EYE EXAM 12/20/2023 URINE MICROALBUMIN/CREATININE RATIO 12/20/2023 ZOSTER VACCINES (1 of 2) 2024 BLOOD PRESSURE 06/18/2024 12/20/2023 HEMOGLOBIN A1C 09/24/2024 03/26/2024, 10/16, 07/10/2023, Additional history exists INFLUENZA VACCINE (#1) 2024 , 04/03/2022, 03/25/2021 COVID-19 VACCINE (2024- season) 2024 05/01/2023, 03/25/2021, 08/25/2020, Additional history exists CREATININE LEVEL 03/26/2025 03/26/2024, 07/2023, 12/20/2023 LIPID PANEL 03/26/2025 03/26/2024, 06/16, 02/13/2023, Additional history exists RSV VACCINE (1 - 1-dose 75+ series) 2049 SMOKING STATUS SCREENING (Once After 26 Yrs) Completed 12/20/2023 HEPATITIS A VACCINES Aged Out No long er eligible based on patient's age to complete this topic HIB VACCINES Aged Out No longer eligi ble based on patient's age to complete this topic MENINGOCOCCAL VACCINES (ACWY) Aged Out No longer eligible based on patient's age to complete this topic MENINGOCOCCAL VACCINES (B) Aged Out N o longer eligible based on patient's age to complete this topic Medical Devices Not on file Procedures Procedure Name Priority Date/Time Associated Diagnosis Comments XR FOOT 3 OR MORE VIEWS (LEFT) Routine 02/03/2025 5:32 PM EDT Pain of toe of left foot HEMOGLOBIN A1C Routine 03/26/2024 8:17 AM EST Type 2 diabetes mellitus without complication, unspecified whether prison insulin use Calculus of kidney LIPID PANEL Routine 03/26/2024 8:17 AM EST Type 2 diabetes mellitus without complication, unspecified whether prison insulin use Calculus of kidney COMPREHENSIVE METABOLIC PANEL Routine 03/26/2024 8:17 AM EST Type 2 diabetes mellitus without complication, unspecified whether exterminator insulin use Calculus of kidney from Last 3 Months or Most Recently Relevant to Health Maintenance Results * XR FOOT 3 OR MORE VIEWS (LEFT) (02/03/2025 5:32 PM EDT) Anatomical Region Laterality Modality Foot Left Computed Radiogr aphy 02/04/2025 11:3 3 AM EDT Impressions 02/04/2025 11:41 AM EDT FINDINGS/IMPRESSION: There is a minimally displaced oblique fracture of the fourth proximal phalanx diaphysis. There is no evidence of acute subluxation or dislocation. There is moderate degenerative change of the first metatarsophalangeal joint. There is a small os naviculare. There is a moderate posterior calcaneal enthesophyte. Findings discussed with the ordering clinician via telephone at 1140 on 02/04/2025. Narrative 02/04/2025 11:41 AM EDT XR FOOT 3 OR MORE VIEWS (LEFT) 02/03/2025 5:23 PM Referring clinician's provided indication for this examination in Epic: Outside Radiology Order; Pain; TOE PAIN COMPARISON: None Procedure Note Inés Solomon MD - 02/04/2025 XR FOOT 3 OR MORE VIEWS (LEFT) 02/03/2025 5:23 PM Referring clinician's provided indication for this examination in [facility]:Outside Radiology Order; Pain; TOE PAIN COMPARISON: None IMPRESSION: FINDINGS/IMPRESSION: There is a minimally displaced oblique fracture of the fourth proximalphalanx diaphysis. There is no evidence of acute subluxation ordislocation. There is moderate degenerative change of the firstmetatarsophalangeal joint. There is a small os naviculare. There is amoderate posterior calcaneal enthesophyte. Findings discussed with the ordering clinician via telephone at 1140 on02/04/2025. Sita PAIGE IMG XR LOWER EXTREMITY Jaja l Result * (ABNORMAL) Comprehensive metabolic panel (03/26/2024 8:17 AM EST) SODIUM 141 133 - 146 mmol/L [facility] POTASSIUM 4.6 3.3 - 5.1 mmol/L [facility] CHLORIDE 105 96 - 108 mmol/L [facility] CO2 26 21 - 35 mmol/L [facility] BUN 16 6 - 19 mg/dL [facility] CREATININE 0.80 0.5 - 1.5 mg/dL [facility] GLUCOSE 196(H) 70 - 99 mg/dL [facility] ALBUMIN 4.5 3.9 - 4.8 g/dL [facility] TOTAL PROTEIN 6.7 6.5 - 8.0 g/dL [facility] CALCIUM 9.9 8.4 - 10.3 mg/dL [facility] ALKALINE PHOSPHATASE 103 39 - 117 U/L [facility] TOTAL BILIRUBIN 0.7 0.0 - 1.2 mg/dL [facility] AST 28 0 - 37 U/L [facility] ALT 27 0 - 40 U/L [facility] GLOBULIN 2.2 1 - 4.8 g/dL [facility] EGFR 108 >59 mL/min/1.7 3m2 [facility] Comment:Estimated glomerular filtration rate calculated using the CKD-EPI refit equation. ANION GAP 15 10 - 20 mmol/L [facility] Blood 03/26/2024 8:17 AM EST 03/26/2024 8:24 AM EST Sita PAIGE LAB BLOOD ORDERABLES Final Result [facility] [address] [place] [address] * (ABNORMAL) Hemoglobin A1c (03/26/2024 8:17 AM EST) HEMOGLOBIN A1C 7.4(H) 4.3 - 5.8 % [facility] Blood 03/26/2024 8:17 AM EST 03/26/2024 8:24 AM EST us Sita PAIGE LAB BLOOD ORDERABLES Final Result Performing Organization Address City/[facility]/ZIP Co de Phone Number [address] [address] * Lipid panel (03/26/2024 8:17 AM EST) HDL 47 mg/dL [facility] Comment: Interpretation <40 mg/dL: Low HDL cholesterol (major risk factor for CHD) Greater than or equal to 60 mg/dL: High HDL cholesterol ( negative risk factor for CHD) HDL - cholesterol is affected by a number of factors, e.g. smoking, excerise, hormones, sex and age. CHOLESTEROL 166 0 - 240 mg/dL [facility] TRIGLYCERIDES 81 30 - 160 mg/dL [facility] LDL 103 50 - 129 mg/dL [facility] Comment: LDL levels in terms of risk for coronary heart disease: <100 mg/dL: Optimal 100-129 mg/dL: Near or above optimal 130-159 mg/dL: Borderline high 160-189 mg/dL: High >190 mg/dL: Very High CARDIAC RISK RATIO 3.5 3.4 - 5.0 [facility] Blood 03/26/2024 8:17 AM EST 03/26/2024 8:24 AM EST us Sita PAIGE LAB BLOOD ORDERABLES Final Result Performing Organization Address City/[facility]/ZIP Co de Phone Number [address] [address] from Last 3 Months or Most Recently Relevant to Health Maintenance Insurance [facility] HMO Member Subscriber Plan / Payer (Ef fective 2020-Present) Name:Nigel Herrera Relation to Subscriber:Self Name:Nigel Herrera Payer ID:Not on file Type:O Address: [address] PPO EPO [facility] HMO Member Subscriber Plan / Payer (Ef fective 2020-Present) Name:Nigel Herrera Relation to Subscriber:Self Name:Nigel Herrera Payer ID:Not on file Type:O Address: [address] [place] [address] [address] [place], [place] [address] [place], [place] [id number] EPO [facility] HMO Member Subscriber Plan / Payer (Ef fective 2020-Present) Name:Nigel Herrera Relation to Subscriber:Self Name:Nigel Herrera Payer ID:Not on file Type:O Address: [address] [place] [address] [place] [address] HMO Member Subscriber Plan / Payer ( fective 2020-Present) Name:Nigel Herrera Relation to Subscriber:Self Name:Nigel Herrera Payer ID:Not on file Type:[facility] Address: [address] PPO EPO Care Teams Chief Psychologist Relationship Specialty Start Date End Date Jimbo Vanessa DO PCP - General Internal Medicine 04/07/20 Jimbo Vanessa DO [address] [place] [address] [email or web address] Insurance Assigned Provider 07/22/23 Additional Source Comments The information contained in this document represents components of the legal health record. It is not the complete legal health record.[facility]
--- OUTSIDE RECORDS SUMMARY | 2025-02-10 07:55 | XMS_ITS | Encounter Summary ---
Author Organization [facility] Address [address] [place] [address] Phone Care Team Providers Care Data Warehouse Analyst Name Role Phone Jimbo Vanessa DO Primary Care Provider [phone] Jimbo Vanessa DO Unavailable Encounter Details Date Type Department Care Team (Late st Contact Info) Description 12/20/2023 Procedure Pass [facility], Ct Scan - [address] [address] Social History Tobacco Use Types Packs/Day Years [...] Risk Indicated 12/20/2023 10:17 AM EDT Mary Abernathy RN * Cloud Suicide Severity Rating Scale (Screener/Recent Self-Report) Question Answer Date of Assessment Author 1. Wish to be (Past 1 Month) No 024 10:17 AM EDT Mary Abernathy RN 2. Non-Specific Active Suici efren Thoughts (Past 1 Month) No 12/20/2023 10:17 AM EDT Eleanor Abernathy RN 6. Suicidal Behavior (Lifetime) No 10:17 AM EDT Mary Abernathy RN documented as of this encounter Plan of Treatment Not on file documented as of this encounter Visit Diagnoses Not on filedocumented in this encounter Care Teams Data Warehouse Analyst Relationship Specialty Start Date End Date Jimbo Vanessa DO [email or web address] PCP - General Internal Medicine 04/07/20 Jimbo Vanessa DO [address] [place] [address] Insurance Assigned Provider 07/22/23 documented as of this encounter Additional Source Comments The information contained in this document represents components of the legal health record. It is not the complete legal health record.[facility]
--- OUTSIDE RECORDS SUMMARY | 2025-02-10 07:55 | XMS_ITS | Encounter Summary ---
Author Organization [facility] Address [address] [place] [address] Phone Care Team Providers Care Fabrication Department Supervisor Name Role Phone Robyn Connor PA-C Primary Care Provider [phone] Jimbo Vanessa DO Primary Care Provider [phone] Jimbo Vanessa DO Unavailable Encounter Details Date Type Department Care Team (Latest Contact Info) Description 04/03/2020 Transcribe Orders Virtual Department [address] [place] [address] Sita Cortez PA [address] [facility] [place] [address] Stenosis of carotid artery, unspecified laterality Social History Tobacco Use Types Packs/Day Years [...] documented as of this encounter Visit Diagnoses Diagnosis Stenosis of carotid artery, unspecified laterality documented in this encounter Care Teams Fabrication Department Supervisor Relationship Specialty Start Date End Date Geeta RobynMANJINDER [address] [place] [address] [email or web address] PCP - General Unknown Provider Specialty 12/27/17 04/06/20 Jimbo Vanessa DO [address] [place] [address] [email or web address] PCP - General Internal Medicine 04/07/20 Jimbo Vanessa DO [address] [place] [address] Insurance Assigned Provider 07/22/23 documented as of this encounter Additional Source Comments The information contained in this document represents components of the legal health record. It is not the complete legal health record.[facility]
--- OUTSIDE RECORDS SUMMARY | 2025-02-10 07:55 | XMS_ITS | Encounter Summary ---
Author Organization [facility] Address [address] [place] [address] Phone Care Team Providers Care Flap Lining Binder Name Role Phone Robyn Connor PA-C Primary Care Provider [phone] Bigandre, Jimbo Pineda DO Primary Care Provider [phone] Rasheeda, Jimbo Pineda DO Unavailable Encounter Details Date Type Department Care Team (Late st Contact Info) Description 12/25/2017 Ancillary Orders [facility] Pharmacy Department Virtual Deparment [address] [place] [address] Robyn Connor PA-C [address] [place] [address] Social History Tobacco Use Types Packs/Day Years [...] on filedocumented in this encounter Care Teams Flap Lining Binder Relationship Specialty Start Date End Date Robyn Connor PA-C [address] [place] [address] [email or web address] PCP - General Unknown Provider Specialty 12/27/17 04/06/20 Jimbo Vanessa DO [address] [facility] [address] [place] [address] PCP - General Internal Medicine 04/07/20 Jimbo Vanessa DO [address] [place] [address] Insurance Assigned Provider 07/22/23 documented as of this encounter Additional Source Comments The information contained in this document represents components of the legal health record. It is not the complete legal health record.[facility]
--- OUTSIDE RECORDS SUMMARY | 2025-02-10 07:55 | XMS_ITS | Encounter Summary ---
Author Organization [facility] Address [address] [place] [address] Phone Care Team Providers Care Plastic Parts Designer Name Role Phone Robyn Connor PA-C Primary Care Provider [phone] Jimbo Vanessa DO Primary Care Provider [phone] Jimbo Vanessa DO Unavailable Encounter Details Date Type Department Care Team (Late st Contact Info) Description 04/03/2020 Ancillary Orders Virtual Department [address] [place] [address] Sita Cortez PA [address] [place] [address] [place] [address] Other specified symptoms and signs involving the circulatory and respiratory systems Social History Tobacco Use Types Packs/Day Years [...] documented as of this encounter Results * US Carotid Duplex Complete (Bilateral) (04/09/2020 12:14 PM EST) Anatomical Region Laterality Modality Heart, Thoracic Vasculature, Neck Ultrasound 04/09/2020 12:2 4 PM EST Impressions 04/09/2020 12:26 PM EST 1. No hemodynamically significant internal carotid artery stenosis. 2. Bilateral antegrade vertebral artery flow. Narrative 04/09/2020 12:26 PM EST COMPARISON: None. CAROTID ULTRASOUND FINDINGS: RIGHT: Peak external carotid artery: 97 cm/sec Peak vertebral: 41 cm/sec and antegrade Carotid artery morphology: No plaque identified. Peak common carotid artery: 108/29 cm/sec Peak internal carotid artery: 85/34 cm/sec Normal peak systolic ratio. LEFT: Peak external carotid artery: 144 cm/sec Peak vertebral: 52 cm/sec and antegrade Carotid artery morphology: No plaque identified. Peak common carotid artery: 135/33 cm/sec Peak internal carotid artery: 72/32 cm/sec Normal peak systolic ratio. Any stenosis measurement is relative to the distal ICA diameters. Procedure Note Nishant Schafer MD - 04/09/2020 COMPARISON: None. CAROTID ULTRASOUND FINDINGS: RIGHT: Peak external carotid artery: 97 cm/sec Peak vertebral: 41 cm/sec and antegrade Carotid artery morphology: No plaque identified. Peak common carotid artery: 108/29 cm/sec Peak internal carotid artery: 85/34 cm/sec Normal peak systolic ratio. LEFT: Peak external carotid artery: 144 cm/sec Peak vertebral: 52 cm/sec and antegrade Carotid artery morphology: No plaque identified. Peak common carotid artery: 135/33 cm/sec Peak internal carotid artery: 72/32 cm/sec Normal peak systolic ratio. Any stenosis measurement is relative to the distal ICA diameters. IMPRESSION: 1. No hemodynamically significant internal carotid artery stenosis. 2. Bilateral antegrade vertebral artery flow. us Sita PAIGE CV US NEUROVASCULAR Final R esult documented in this encounter Visit Diagnoses Diagnosis Other specified symptoms and signs involving the circulatory and respiratory systems Other specified symptoms and signs involving the circulatory and respiratory systems documented in this encounter Care Teams Plastic Parts Designer Relationship Specialty Start Date End Date GeetaJulyMANJINDER [address] [place] [address] PCP - General Unknown Provider Specialty 12/27/17 04/06/20 Jimbo Vanessa DO [address] [place] [address] [email or web address] PCP - General Internal Medicine 04/07/20 Jimbo Vanessa DO [address] [place] [address] Insurance Assigned Provider 07/22/23 documented as of this encounter Additional Source Comments The information contained in this document represents components of the legal health record. It is not the complete legal health record.[facility]
[2025-02-10 13:23] LABS: MANUAL DIFF FLAG NO
[2025-02-10 13:38] LABS: Hematocrit 50.1 % (42.0-52.0); Hemoglobin 17.2 g/dl (14.0-18.0); Imm Gran Abs Auto 0.08 X10*3/uL (0.00-0.03); Imm Gran Pct Auto 0.9 % (0.0-0.4); Lymphocytes Absolute Auto 2.2 X10*3/uL (1.2-4.9); Mean Corpuscular HGB Conc 34.3 g/dl (31.0-36.0); Mean Corpuscular Hemoglobin 31.3 pg (27.0-33.0); Mean Corpuscular Volume 91.3 fL (80.0-98.0); NRBC Abs Auto 0.000 X10*3/uL (0.0-0.012); NRBC Pct Auto 0.0 /100WBC (0.0-0.2); Platelet Count 300 X10*3/uL (160-400); Red Blood Count 5.49 X10*6/uL (4.60-5.80); White Blood Count 9.3 X10*3/uL (4.8-10.8)
[2025-02-10 13:40] LABS: Hemoglobin A1C 246.4142 umol/L; Total Hemoglobin (HGBA1C) 4300.8070 umol/L
[2025-02-10 13:47] LABS: Alanine Aminotransferase 25 U/L (0-40); Albumin Level 4.5 g/dL (3.5-5.0); Alkaline Phosphatase 94 U/L (39-117); Anion Gap 14 (12-20); Aspartate Amino Transferase 25 U/L (5-37); Blood Urea Nitrogen 17 mg/dL (9-16); Calcium 8.4 mg/dL (8.4-10.2); Carbon Dioxide 22 mmol/L (22-29); Chloride 108 mmol/L (96-108); Cholesterol 148 mg/dL (<200); Estimated Glomerular Filt Rate > 60; HDL Cholesterol 34 mg/dL (>40); Potassium 3.7 mmol/L (3.3-5.1); Sodium 140 mmol/L (135-145); Total Protein 6.6 g/dL (6.5-8.0); Triglycerides 124 mg/dL (<150); Uric Acid 4.6 mg/dL (3.4-7.0)
[2025-02-10 14:11] LABS: Prostate Specific Antigen 0.32 ng/mL (<0.05-4.0)
[2025-02-10 15:03] LABS: Parathyroid Hormone Intact 100.4 pg/mL (8.7-77.1)
== END 2025-02-10 07:51 | disposition home or self-care (01) ==
LOC: HO.MANLDS 07:50
PROVIDERS: Physician Assistant Medical; Visit Provider Physician Assistant
DX: Z12.5 Encounter for screening for malignant neoplasm of prostate (principal); N40.1 Benign prostatic hyperplasia with lower urinary tract symptoms; E11.9 Type 2 diabetes mellitus without complications; N20.0 Calculus of kidney
CPT/HCPCS: 36415; 80053; 80061; 83036; 83970; 84153; 84550; 85025